=== PATIENT | male | born 1990 | race Caucasian/White ===

== ENCOUNTER 2018-06-20 18:28 | Emergency (ER) | payer MEDICAID ==
--- NOTE | 2018-06-20 18:55 | ED Physician Chart ---
ED Chief Complaint/HPI - Patient Information Date Seen:: 06/20/18 (t) Time Seen:: 18:48 Chief Complaint:: anxiety tachycardia History of Present Illness:: 28 yr old male who was arrested 2-3 days ago for etoh discharged today and was at his storage facility getting his stuff when he felt anxious and pulse was up to 130's after he had just smoked a cgtt . now in 70's no sob cp headache or dizziness he says he feels ok does not need blood or work up wants food and his parents are wanting to him to go back to [place] Allergies:: Allergies Allergy/AdvReac Type Severity Reaction Status Date / Time codeine Allergy Verified 06/20/18 18:38 Vitals:: Vital Signs - 8 hr 06/20/18 18:39 Temp 98.3 F HR 65 RR 15 BP 116/77 O2 Sat % 100 ED Review of Systems - Review of Systems General/Constitutional: No fever, No chills, No weight loss, No weakness, No diaphoresis, No edema, No loss of appetite Skin: No skin lesions, No rash, No bruising Head: No headache, No light-headedness Eyes: No loss of vision, No pain, No diplopia ENT: No earache, No nasal drainage, No sore throat, No tinnitus Neck: No neck pain, No swelling, No thyromegaly, No stiffness, No mass noted Cardio Vascular: No chest pain, No palpitations, No PND, No orthopnea, No edema Pulmonary: No SOB, No cough, No sputum, No wheezing GI: No nausea, No vomiting, No diarrhea, No pain, No melena, No hematochezia, No constipation, No hematemesis G/U: No dysuria, No frequency, No hematuria Musculoskeletal: No bone or joint pain, No back pain, No muscle pain Endocrine: No polyuria, No polydipsia Psychiatric: No prior psych history, No depression, No anxiety, No suicidal ideation Hematopoietic: No bruising, No lymphadenopathy Allergic/Immuno: No urticaria, No angioedema Neurological: No syncope, No focal symptoms, No weakness, No paresthesia, No headache, No seizure, No dizziness, No confusion, No vertigo ED Past Medical History - Past Medical History Past Medical History: Other (etoh) Family Medical History - Family Member Mother History Unknown: Yes ED Septic Shock - . Is Septic Shock (SBP<90, OR Lactate>4 mmol\L) present?: No - <6hrs of presentation: Vital Signs: Vital Signs - 8 hr 06/20/18 18:39 Temp 98.3 F HR 65 RR 15 BP 116/77 O2 Sat % 100 ED Reassessment (Disposition) - Reassessment Reassessment Condition:: Improved - Diagnosis Diagnosis:: anxiety - Aftercare/Follow up Instructions Aftercare/Follow-Up Instructions:: Counseled pt regarding lab results/diagnosis & need follow up - Patient Disposition Discharge/Transfer:: Home Condition at Disposition:: Stable
== END 2018-06-20 19:00 | disposition home or self-care (01) ==
LOC: ER 18:28
DX: F41.9 Anxiety disorder, unspecified (principal); F17.210 Nicotine dependence, cigarettes, uncomplicated; Z88.5 Allergy status to narcotic agent
CPT/HCPCS: Z7502

== ENCOUNTER 2018-06-27 17:58 | Emergency (ER) | payer MEDICAID ==
[2018-06-27] MEDS ORDERED: Sodium Chloride 0.45% 1,000 ML IV ONE (18:04)
--- NOTE | 2018-06-27 18:26 | ED Physician Chart ---
ED Chief Complaint/HPI - Patient Information Date Seen:: 06/27/18 Time Seen:: 18:21 Chief Complaint:: chest pain and anxiety History of Present Illness:: this is a 28 yo homeless male with no history of heart disease and no family history of heart disease. the pain is non-radiating and substernal. the patient denies fever, nausea and vomiting. he admits to smoking and denies hypertension and diabetes. he drinks alcohol also. he denies sob and cough. the patient states that he is homeless. Allergies:: Allergies Allergy/AdvReac Type Severity Reaction Status Date / Time codeine Allergy Verified 06/27/18 18:03 Vitals:: Vital Signs - 8 hr 06/27/18 18:04 Temp 98.1 F HR 101 RR 16 BP 133/84 O2 Sat % 98 Historian:: Patient Review:: Nurse's Note Reviewed, Old Chart Reviewed ED Review of Systems - Review of Systems General/Constitutional: No fever, No chills, No weight loss, No weakness, No diaphoresis, No edema, No loss of appetite Skin: No skin lesions, No rash, No bruising Head: No headache, No light-headedness Eyes: No loss of vision, No pain, No diplopia ENT: No earache, No nasal drainage, No sore throat, No tinnitus Neck: No neck pain, No swelling, No thyromegaly, No stiffness, No mass noted Cardio Vascular: Chest pain, No palpitations, No PND, No orthopnea, No edema Pulmonary: No SOB, No cough, No sputum, No wheezing GI: No nausea, No vomiting, No diarrhea, No pain, No melena, No hematochezia, No constipation, No hematemesis G/U: No dysuria, No frequency, No hematuria Musculoskeletal: No bone or joint pain, No back pain, No muscle pain Endocrine: No polyuria, No polydipsia Psychiatric: No prior psych history, No depression, Anxiety, No suicidal ideation Hematopoietic: No bruising, No lymphadenopathy Allergic/Immuno: No urticaria, No angioedema Neurological: No syncope, No focal symptoms, No weakness, No paresthesia, No headache, No seizure, No dizziness, No confusion, No vertigo ED Past Medical History - Past Medical History Obtainable: Yes Past Medical History: Other (anxiety) Family History: None Social History: Smoker, Alcohol, Illicit Drug Use, Homeless Surgical History: None Psychiatricy History: None Medication: Reviewed Family Medical History - Family Member Mother History Unknown: Yes ED Physical Exam - Physical Examination General/Constitutional: Awake, Well-developed, well-nourished, Alert, No distress, GCS 15, Non-toxic appearing, Ambulatory Head: Atraumatic Eyes: Lids, conjuctiva normal, PERRL, EOMI Skin: Nl inspection, No rash, No skin lesions, No ecchymosis, Well hydrated, No lymphadenopathy ENMT: External ears, nose nl, Nasal exam nl, Lips, teeth, gums nl Neck: Nontender, Full ROM w/o pain, No JVD, No nuchal rigidity, No bruit, No mass, No stridor Respiratory: Nl effort/Exclusion, Clear to Auscultation, No Wheeze/Rhonchi/Rales Cardio Vascular: RRR, No murmur, gallop, rubs, NL S1 S2 GI: No tenderness/rebounding/guarding, No organomegaly, No hernia, Normal BS's, Nondistended, No mass/bruits, No McBurney tenderness : No CVA tenderness Extremities: No tenderness or effusion, Full ROM, normal strength in all extremities, No edema, Normal digits & nails Neuro/Psych: Alert/oriented, DTR's symmetric, Normal sensory exam, Normal motor strength, Judgement/insight normal, Mood normal, Normal gait, No focal deficits Misc: Normal back, No paraspinal tenderness ED Assessment - Assessment General Assessment: chest wall pain anxiety ED Septic Shock - . Is Septic Shock (SBP<90, OR Lactate>4 mmol\L) present?: No - <6hrs of presentation: Vital Signs: Vital Signs - 8 hr 06/27/18 18:04 Temp 98.1 F HR 101 RR 16 BP 133/84 O2 Sat % 98 ED Reassessment (Disposition) - Diagnosis Diagnosis:: anxiety - Aftercare/Follow up Instructions Notes:: dr weems will care for the patient starting at 0700 hrs
[2018-06-27 18:32] LABS: % BASOPHILS 0.2 % (0.0-2.0); % LYMPHOCYTES 26.7 % (20.0-50.0); % MONOCYTES 8.2 % (2.0-10.0); % NEUTROPHILS 63.9 % (40.0-80.0); EOSINOPHILE ABSOLUTE 0.1 Th/cmm (0.1-0.4); HEMATOCRIT 40.8 % (41.0-60); HEMOGLOBIN 13.2 gm/dL (12-16); LYMPHOCYTE ABSOLUTE 1.4 Th/cmm (1.5-3.0); MEAN CELL VOLUME 87.8 fl (80-99); MEAN CORPUSCULAR HEMOGLOBIN 28.5 pg (26.0-30.0); MEAN CORPUSCULAR HGB CONC 32.4 pg (28.0-36.0); MEAN PLATELET VOLUME 9.2 fl; MONOCYTE ABSOLUTE 0.4 Th/cmm (0.3-1.0); NEUTROPHILE ABSOLUTE 3.3 Th/cmm (1.8-8.0); PLATELET COUNT 216 Th/cmm (150-400); RED BLOOD COUNT 4.64 Mil/cmm (4.30-5.70); RED CELL DISTRIBUTION WIDTH 12.9 % (11.5-20.0); WHITE BLOOD COUNT 5.2 Th/cmm (4.8-10.8)
[2018-06-27 18:49] LABS: ALB/GLOB RATIO 1.7 (1.0-1.8); ALBUMIN 4.1 gm/dL (4.2-5.5); ALKALINE PHOSPHATASE 52 U/L (34-104); ANION GAP 13.6 (7.0-16.0); BILIRUBIN,TOTAL 0.4 mg/dL (0.3-1.0); BUN - UREA NITROGEN 13 mg/dL (7-25); CALCIUM SERUM 9.5 mg/dL (8.6-10.3); CARBON DIOXIDE 28.3 mEq/L (21.0-31.0); CHLORIDE 105 mEq/L (98-107); CREATININE - SERUM 1.1 mg/dL (0.7-1.3); GFR AFRICAN-AMERICAN > 60.0 ml/min (>90); GFR NON AFRICAN-AMERICAN > 60.0 ml/min; GLUCOSE 76 mg/dL (70-105); POTASSIUM SERUM 3.9 mEq/L (3.5-5.1); SGOT 18 U/L (13-39); SGPT/ALT 16 U/L (7-52); SODIUM SERUM 143 mEq/L (136-145); TOTAL PROTEIN,SERUM 6.5 gm/dL (6.0-8.3)
[2018-06-27 18:50] LABS: PROTHROMBIN TIME (TEST) 10.4 SECONDS (9.5-11.5)
== END 2018-06-27 20:35 | disposition home or self-care (01) ==
LOC: ER 17:58
DX: F41.9 Anxiety disorder, unspecified (principal); R07.2 Precordial pain; F10.10 Alcohol abuse, uncomplicated; F17.200 Nicotine dependence, unspecified, uncomplicated; Z59.0 Homelessness; Z88.5 Allergy status to narcotic agent
CPT/HCPCS: 36415-UA; 80053-TC; 80320-TC; 84443-TC; 84484-TC; 85025-TC; 85610-TC; 85730-TC; J7030; Z7502

== ENCOUNTER 2018-08-03 07:19 | Emergency (ER) | payer MEDICAID ==
--- NOTE | 2018-08-04 11:36 | ER Physician Documentation ---
DATE OF SERVICE: 08/03/2018 HISTORY OF PRESENT ILLNESS: This patient is 28 years old. He is brought in by pain medicine physician ambulance because apparently he was found on the street. Bystander called 911 and asked the ambulance to take the patient to the ER. The patient apparently was found on the street intoxicated with alcohol, but there was no report of any trauma. The patient initially had some nausea, but that resolved upon ER arrival. The patient had no symptoms upon ER arrival and was alert and oriented x 4. PAST MEDICAL HISTORY: Alcohol intoxication. PAST SURGICAL HISTORY: None. MEDICATIONS: None. SOCIAL HISTORY: The patient is homeless. FAMILY HISTORY: Not known. REVIEW OF SYSTEMS: Otherwise noncontributory. PHYSICAL EXAMINATION: GENERAL: The patient to be in no acute distress, alert and oriented x 3. VITAL SIGNS: Afebrile. Vital signs are stable. HEENT: Head is normocephalic, atraumatic. Pupils equal, round, reactive to light. Fundi benign. Extraocular muscles and TMJs within normal limits. No otorrhea or rhinorrhea, without loose teeth. There is no evidence of trauma. NECK: Supple, no cervical tenderness. No meningeal signs. No bruits. CARDIOVASCULAR: Regular rate and rhythm. LUNGS: Clear with good breath sounds bilaterally. ABDOMEN: Soft, nontender, normal active bowel sounds. No pulsatile masses. EXTREMITIES: No edema, clubbing or cyanosis, NEUROLOGIC: Shows no focal signs. Gait is within normal limits. MEDICAL DECISION MAKING: The patient is ambulatory and has no complaints. The patient refused lab test. The patient refused x-rays and was asymptomatic upon discharge. The patient was able to tolerate fluids well and was given a sandwich the patient ate in the Emergency Room course. He ate a meal and tolerated it well with no problems. Thus, the patient was discharged. Aftercare instructions have been given. The patient is to return to the Emergency Room as needed if the existing signs and symptoms should reoccur and/or get worse and/or any other new signs and symptoms should occur. The patient is to be referred to [facility] and to be referred to detox center as soon as possible. The patient to be referred to pigeon fancier and bulk mail technician as soon as possible. Otherwise, follow up care with primary physician when it was needed. Aftercare instructions were given. Return to Emergency Room as needed if concerned. DIAGNOSES: Nausea, which resolved; gastritis, alcohol abuse, alcoholism. [facility]# [id number]
== END 2018-08-03 09:15 | disposition home or self-care (01) ==
LOC: ER 07:19
DX: K29.70 Gastritis, unspecified, without bleeding (principal); F10.129 Alcohol abuse with intoxication, unspecified; Z88.5 Allergy status to narcotic agent
CPT/HCPCS: Z7502

== ENCOUNTER 2018-10-26 08:34 | Emergency (ER) | payer MEDICAID ==
--- NOTE | 2018-10-26 11:03 | ED Physician Chart ---
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 ER for Alcohol Intoxication and Alcohol Withdrawal and was discharged 4 hours ago with a Rx for Librium in which the pt did not fill that prescription; pt denies trauma, LOC, ALOC, AMS, decreased activity, visual or gait changes, weakness, dizziness, paresthesias, vertigo, SIs, H/As, neck pain, cough, C/P, SOB, Abd. 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 Allergies:: Allergies Allergy/AdvReac Type Severity Reaction Status Date / Time codeine Allergy Verified 10/26/18 08:44 Vitals:: Vital Signs - 8 hr 10/26/18 10/26/18 08:44 09:06 Temp 98.4 F 98.4 F HR 71 71 RR 18 18 BP 138/85 138/85 O2 Sat % 98 Historian:: Patient, EMS Review:: Nurse's Note Reviewed, Old Chart Reviewed, EMS run form Reviewed ED Review of Systems - Review of Systems General/Constitutional: No fever, No chills, No weight loss, No weakness, No diaphoresis, No edema, No loss of appetite Skin: No skin lesions, No rash, No bruising Head: No headache, No light-headedness Eyes: No loss of vision, No pain, No diplopia ENT: No earache, No nasal drainage, No sore throat, No tinnitus Neck: No neck pain, No swelling, No thyromegaly, No stiffness, No mass noted Cardio Vascular: No chest pain, No palpitations, No PND, No orthopnea, No edema Pulmonary: No SOB, No cough, No sputum, No wheezing GI: No nausea, No vomiting, No diarrhea, No pain, No melena, No hematochezia, No constipation, No hematemesis G/U: No dysuria, No frequency, No hematuria, No nacturia Musculoskeletal: No bone or joint pain, No back pain, No muscle pain Endocrine: No polyuria, No polydipsia Psychiatric: No prior psych history, No depression, Anxiety, No suicidal ideation, No homicidal ideation, No auditory hallucination, No visual hallucination Hematopoietic: No bruising, No lymphadenopathy Allergic/Immuno: No urticaria, No angioedema Neurological: No syncope, No focal symptoms, No weakness, No paresthesia, No headache, No seizure, No dizziness, No confusion, No vertigo ED Past Medical History - Past Medical History Obtainable: Yes Past Medical History: No significant medical hx Family History: None Social History: Non Smoker, Alcohol, No Drug Use, Single, Homeless Surgical History: None Psychiatricy History: None Medication: Reviewed Family Medical History - Family Member Mother History Unknown: Yes ED Physical Exam - Physical Examination General/Constitutional: Awake, Well-developed, well-nourished, Alert, No distress, GCS 15, Non-toxic appearing, Ambulatory Head: Atraumatic Eyes: Lids, conjuctiva normal, PERRL, EOMI Skin: Nl inspection, No rash, No skin lesions, No ecchymosis, Well hydrated, No lymphadenopathy ENMT: External ears, nose nl, TM canals nl, Nasal exam nl, Lips, teeth, gums nl , Oropharynx nl, Tonsils nl Neck: Nontender, Full ROM w/o pain, No JVD, No nuchal rigidity, No bruit, No mass, No stridor Other Neck comments:: supple; no meningeal signs; no cervical tenderness; no bruits Respiratory: Nl effort/Exclusion, Clear to Auscultation, No Wheeze/Rhonchi/Rales Cardio Vascular: RRR, No murmur, gallop, rubs, NL S1 S2, Carotid/Femoral/Distal pulses equal bilaterally GI: No tenderness/rebounding/guarding, No organomegaly, No hernia, Normal BS's, Nondistended, No mass/bruits, No McBurney tenderness, Rectum exam nl Other GI comments:: no pulsatile masses; Stool is Negative for Occult Blood : No CVA tenderness Extremities: No tenderness or effusion, Full ROM, normal strength in all extremities, No edema, Normal digits & nails Neuro/Psych: Alert/oriented, DTR's symmetric, Normal sensory exam, Normal motor strength, Judgement/insight normal, Mood normal, Normal gait, No focal deficits Other Neuro/Psych comments:: no focal signs; MSE: WNL; no SIs Misc: Normal back, No paraspinal tenderness ED Labs/Radiology/EKG Results - Lab Results Comments:: deferred by pt - Radiology Results Comments:: dferred by pt ED Septic Shock - . Is Septic Shock (SBP<90, OR Lactate>4 mmol\L) present?: No - <6hrs of presentation: Vital Signs: Vital Signs - 8 hr 10/26/18 10/26/18 08:44 09:06 Temp 98.4 F 98.4 F HR 71 71 RR 18 18 BP 138/85 138/85 O2 Sat % 98 ED Reassessment (Disposition) - Reassessment Reassessment:: pt tolerated po fluids well in ER; pt's anxiety resolved in ER; pt is asymptomatic upon discharge Reassessment Condition:: Improved - Diagnosis Diagnosis:: Alcohol Intoxication; Alcohol Withdrawal; Anxiety Reaction - Aftercare/Follow up Instructions Aftercare/Follow-Up Instructions:: Counseled pt regarding lab results/diagnosis & need follow up, Refer to Discharge Instructions, Counseled pt & family regarding lab results/diagnosis & need follow up Medication Prescribed:: Rx: Librium: take as prescribed; Avoid Alcohol Beverages - Patient Disposition Discharge/Transfer:: Home Condition at Disposition:: Stable, Improved (RTER prn if existing s/s reoccur and/or get worse and/or any other new s/s occur; ACIs given for all above Dx; Refer to [facility]; Refer to Psychiatrist/[employer] [facility]; F/U with PMD in one day or prn; RTER prn if concerned)
== END 2018-10-26 09:30 | disposition home or self-care (01) ==
LOC: ER 08:34
DX: F10.129 Alcohol abuse with intoxication, unspecified (principal); F41.1 Generalized anxiety disorder; Z59.0 Homelessness; Z88.5 Allergy status to narcotic agent
CPT/HCPCS: Z7502

== ENCOUNTER 2018-11-15 06:54 | Emergency (ER) | payer MEDICAID ==
--- NOTE | 2018-11-15 08:15 | ED Physician Chart ---
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 Allergies:: Allergies Allergy/AdvReac Type Severity Reaction Status Date / Time codeine Allergy Verified 11/15/18 07:01 Vitals:: Vital Signs - 8 hr 11/15/18 06:55 Temp 98.1 F HR 80 RR 18 BP 120/56 O2 Sat % 100 Historian:: Patient, EMS Review:: Nurse's Note Reviewed, Old Chart Reviewed, EMS run form Reviewed ED Review of Systems - Review of Systems General/Constitutional: No fever, No chills, No weight loss, No weakness, No diaphoresis, No edema, No loss of appetite Skin: No skin lesions, No rash, No bruising Head: No headache, No light-headedness Eyes: No loss of vision, No pain, No diplopia ENT: No earache, No nasal drainage, No sore throat, No tinnitus Neck: No neck pain, No swelling, No thyromegaly, No stiffness, No mass noted Cardio Vascular: No chest pain, No palpitations, No PND, No orthopnea, No edema Pulmonary: No SOB, No cough, No sputum, No wheezing GI: No nausea, No vomiting, No diarrhea, No pain, No melena, No hematochezia, No constipation, No hematemesis G/U: No dysuria, No frequency, No hematuria, No nacturia Musculoskeletal: No bone or joint pain, No back pain, No muscle pain Endocrine: No polyuria, No polydipsia Psychiatric: No prior psych history, No depression, Anxiety, No suicidal ideation, No homicidal ideation, No auditory hallucination, No visual hallucination Hematopoietic: No bruising, No lymphadenopathy Allergic/Immuno: No urticaria, No angioedema Neurological: No syncope, No focal symptoms, No weakness, No paresthesia, No headache, No seizure, No dizziness, No confusion, No vertigo ED Past Medical History - Past Medical History Obtainable: Yes Past Medical History: No significant medical hx Family History: None Social History: Non Smoker, Alcohol, No Drug Use, Single, Homeless Surgical History: None Psychiatricy History: None Medication: Reviewed Family Medical History - Family Member Mother History Unknown: Yes ED Physical Exam - Physical Examination General/Constitutional: Awake, Well-developed, well-nourished, Alert, No distress, GCS 15, Non-toxic appearing, Ambulatory Head: Atraumatic Eyes: Lids, conjuctiva normal, PERRL, EOMI Other Eyes comments:: PERRLA; Fundi: benign; EOMs: WNL Skin: Nl inspection, No rash, No skin lesions, No ecchymosis, Well hydrated, No lymphadenopathy ENMT: External ears, nose nl, TM canals nl, Nasal exam nl, Lips, teeth, gums nl , Oropharynx nl, Tonsils nl Other ENMT comments:: TMJs: WNL Neck: Nontender, Full ROM w/o pain, No JVD, No nuchal rigidity, No bruit, No mass, No stridor Other Neck comments:: supple; no meningeal signs; no cervical tenderness; no bruits Respiratory: Nl effort/Exclusion, Clear to Auscultation, No Wheeze/Rhonchi/Rales Cardio Vascular: RRR, No murmur, gallop, rubs, NL S1 S2, Carotid/Femoral/Distal pulses equal bilaterally GI: No tenderness/rebounding/guarding, No organomegaly, No hernia, Normal BS's, Nondistended, No mass/bruits, No McBurney tenderness, Rectum exam nl Other GI comments:: no pulsatile masses; Stool: - OB : No CVA tenderness Extremities: No tenderness or effusion, Full ROM, normal strength in all extremities, No edema, Normal digits & nails Neuro/Psych: Alert/oriented, DTR's symmetric, Normal sensory exam, Normal motor strength, Judgement/insight normal, Mood normal, Normal gait, No focal deficits Other Neuro/Psych comments:: no focal signs; MSE: WNL; no SIs; Mood/Affect: Stable Misc: Normal back, No paraspinal tenderness ED Labs/Radiology/EKG Results - Lab Results Comments:: deferred by pt - Radiology Results Comments:: defrred by pt ED Septic Shock - . Is Septic Shock (SBP<90, OR Lactate>4 mmol\L) present?: No - <6hrs of presentation: Vital Signs: Vital Signs - 8 hr 11/15/18 06:55 Temp 98.1 F HR 80 RR 18 BP 120/56 O2 Sat % 100 ED Reassessment (Disposition) - Reassessment Reassessment:: pt tolerated po fluids well in ER; pt is asymptomatic upon discharge Reassessment Condition:: Improved - Diagnosis Diagnosis:: Alcohol Withdrawal; Alcohol Abuse; Anxiety Reaction - Aftercare/Follow up Instructions Aftercare/Follow-Up Instructions:: Counseled pt regarding lab results/diagnosis & need follow up, Refer to Discharge Instructions, Counseled pt & family regarding lab results/diagnosis & need follow up Medication Prescribed:: Rx: Ativan 1.0mg po tid prn anxiety/withdrawal (#10); take medication as prescribed; Avoid ETOH Beverages; Fluids - Patient Disposition Discharge/Transfer:: Home Condition at Disposition:: Stable, Improved (RTER prn if existing s/s reoccur and/or get worse and/or any other new s/s occur; ACIs given for all above Dx; refer to Psychiatrist/Perforator Operator [employer] [facility]; Refer to [facility]; F/U with PMD in one day or prn; RTER prn if concerned)
== END 2018-11-15 08:02 | disposition home or self-care (01) ==
LOC: ER 06:54
DX: F41.1 Generalized anxiety disorder (principal); F10.239 Alcohol dependence with withdrawal, unspecified; Z59.0 Homelessness; Z88.5 Allergy status to narcotic agent
CPT/HCPCS: Z7502

== ENCOUNTER 2018-11-29 08:08 | Emergency (ER) | payer MEDICAID ==
--- NOTE | 2018-11-29 08:59 | ED Physician Chart ---
ED Chief Complaint/HPI - Patient Information Date Seen:: 11/29/18 Time Seen:: 08:40 Chief Complaint:: head doesnt feel right later says withdrawal later request for ativan scrip History of Present Illness:: day admits to etoh homeless Allergies:: Allergies Allergy/AdvReac Type Severity Reaction Status Date / Time codeine Allergy Verified 11/15/18 07:01 Vitals:: Vital Signs - 8 hr 11/29/18 08:30 Temp 97.8 F HR 71 RR 18 BP 120/76 O2 Sat % 97 ED Review of Systems - Review of Systems General/Constitutional: No fever Skin: No skin lesions Head: No headache Eyes: No loss of vision ENT: No earache Neck: No neck pain Cardio Vascular: No chest pain Pulmonary: No SOB GI: No nausea, No vomiting Musculoskeletal: No bone or joint pain Endocrine: No polyuria Psychiatric: Anxiety Hematopoietic: No bruising Allergic/Immuno: No urticaria Neurological: No syncope (up in exam room ambulating without distress) ED Past Medical History - Past Medical History Obtainable: Yes (unreliable historian) Past Medical History: No significant medical hx (chronic etoh no reported trauma ) Social History: Alcohol, Other (benzo) Surgical History: None Psychiatricy History: Other (etoh) Family Medical History - Family Member Mother History Unknown: Yes ED Physical Exam - Physical Examination General/Constitutional: Alert, No distress, Non-toxic appearing, Ambulatory Head: Atraumatic Eyes: Lids, conjuctiva normal Skin: Nl inspection ENMT: External ears, nose nl Neck: Nontender, Full ROM w/o pain, No JVD, No nuchal rigidity, No stridor Respiratory: Nl effort/Exclusion Cardio Vascular: RRR GI: No tenderness/rebounding/guarding Extremities: No tenderness or effusion, Full ROM Neuro/Psych: Normal motor strength ED Labs/Radiology/EKG Results - Lab Results Results: lactic acidosis lipase slight increase slight etoh iv placed immediate wants out ad ama ED Assessment - Assessment General Assessment: etohism neg intracerbral bleed ED Septic Shock - . Is Septic Shock (SBP<90, OR Lactate>4 mmol\L) present?: No - <6hrs of presentation: Vital Signs: Vital Signs - 8 hr 11/29/18 08:30 Temp 97.8 F HR 71 RR 18 BP 120/76 O2 Sat % 97 ED Reassessment (Disposition) - Reassessment Reassessment Condition:: Unchanged - Aftercare/Follow up Instructions Aftercare/Follow-Up Instructions:: Counseled pt regarding lab results/diagnosis & need follow up (worsening teturn) - Patient Disposition Discharge/Transfer:: Against Medical Advice
[2018-11-29 09:24] LABS: ALB/GLOB RATIO 1.8 (1.0-1.8); ALBUMIN 4.2 gm/dL (4.2-5.5); ALKALINE PHOSPHATASE 33 U/L (34-104); ANION GAP 11.3 (7.0-16.0); BILIRUBIN,TOTAL 0.4 mg/dL (0.3-1.0); BUN - UREA NITROGEN 13 mg/dL (7-25); CALCIUM SERUM 9.1 mg/dL (8.6-10.3); CHLORIDE 106 mEq/L (98-107); CREATININE - SERUM 1.1 mg/dL (0.7-1.3); GFR AFRICAN-AMERICAN > 60.0 ml/min (>90); GFR NON AFRICAN-AMERICAN > 60.0 ml/min; GLUCOSE 86 mg/dL (70-105); LIPASE 103 U/L (11-82); POTASSIUM SERUM 4.3 mEq/L (3.5-5.1); SGOT 32 U/L (13-39); SGPT/ALT 26 U/L (7-52); SODIUM SERUM 141 mEq/L (136-145); TOTAL PROTEIN,SERUM 6.5 gm/dL (6.0-8.3)
[2018-11-29 09:25] LABS: HEMATOCRIT 39.3 % (41.0-60); MEAN CORPUSCULAR HEMOGLOBIN 29.8 pg (26.0-30.0); MEAN CORPUSCULAR HGB CONC 33.2 pg (28.0-36.0); PLATELET COUNT 170 Th/cmm (150-400); RED BLOOD COUNT 4.37 Mil/cmm (4.30-5.70); RED CELL DISTRIBUTION WIDTH 13.3 % (11.5-20.0); WHITE BLOOD COUNT 3.3 Th/cmm (4.8-10.8)
[2018-11-29 09:26] LABS: BILIRUBIN,DIRECT 0.09 mg/dL (0.0-0.2)
[2018-11-29 09:58] LABS: BAND NEUTROPHILE 1 % (0-10); BASOPHIL 0 % (0-3); EOSINOPHIL 0 % (0-5); LYMPHOCYTE 34 % (20-50); MONOCYTE 11 % (2-10); NEUTROPHILS 54 % (40-80)
[2018-11-29 10:02] LABS: URINE SOURCE RANDOM
[2018-11-29 10:08] LABS: URINE BILIRUBIN NEGATIVE (NEGATIVE); URINE BLOOD NEGATIVE (NEGATIVE); URINE GLUCOSE (UA) NEGATIVE (NEGATIVE); URINE KETONE NEGATIVE (NEGATIVE); URINE LEUKOCYTE ESTERASE NEGATIVE (NEGATIVE); URINE NITRATE NEGATIVE (NEGATIVE); URINE PH 5.5 (4.6 - 8.0); URINE PROTEIN NEGATIVE (NEGATIVE); URINE UROBILINOGEN 0.2 E.U./dL (0.2 - 1.0)
[2018-11-29 10:13] LABS: URINE CLARITY CLEAR (CLEAR); URINE COLOR YELLOW; URINE MICROSCOPIC INDICATED? NO
[2018-11-29 10:18] LABS: AMPHETAMINE URINE NEGATIVE (NEGATIVE); BARBITURATES URINE NEGATIVE (NEGATIVE); BENZODIAZEPINES QUAL URINE POSITIVE (NEGATIVE); CANNABINOID THC NEGATIVE (NEGATIVE); COCAINE METABOLITE QUAL URINE NEGATIVE (NEGATIVE); METHADONE URINE NEGATIVE (NEGATIVE); METHAMPHETAMINES QUAL URINE NEGATIVE (NEGATIVE); OPIATES (MORPHINE) QUAL. URINE NEGATIVE (NEGATIVE); PHENCYCLIDINE (PCP) URINE NEGATIVE (NEGATIVE); TRICYCLICS (TCA) QUAL. URINE NEGATIVE (NEGATIVE)
[2018-11-29] MEDS ORDERED: Sodium Chloride 0.9% 500 ML IV ONE (11:19)
--- NOTE | 2018-11-29 12:59 | Diagnostic Imaging Report ---
Portable chest x-ray History: Cough Allowing for portable technique the heart size is normal. No focal pulmonary parenchymal processes. No hilar or mediastinal abnormalities. Impression: No acute abnormalities.
== END 2018-11-29 11:45 | disposition left against medical advice (07) ==
LOC: ER 08:08
DX: F10.239 Alcohol dependence with withdrawal, unspecified (principal); Z59.0 Homelessness; Z88.5 Allergy status to narcotic agent; Y90.3 Blood alcohol level of 60-79 mg/100 ml
CPT/HCPCS: 99284; 71046; 36415; 83605; 80307; 85007; 85025; 81003; 80320; 83690; 80076; 80048; 87040; J7040

== ENCOUNTER 2018-12-20 20:07 | Emergency (ER) | payer MEDICAID ==
--- NOTE | 2018-12-20 20:26 | ED Physician Chart ---
ED Chief Complaint/HPI - Patient Information Date Seen:: 12/20/18 Time Seen:: 20:21 Chief Complaint:: Dizziness History of Present Illness:: 28 yo homeless male had dizziness 30 minutes ago. Pt asked a bystander to call 911. Pt told EMS that "I am feeling dizzy and my heart is weak." Pt was then brought to [place] [facility]. Pt was joking, laughing and talking to himself. 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 Pt wanted a CXR to clear him. After search, pt had already had a CXR 2 views done at our ER on 11/29 which showed no acute abnormalities, no focal pulmonary parenchymal processes. Allergies:: Allergies Allergy/AdvReac Type Severity Reaction Status Date / Time codeine Allergy Verified 11/15/18 07:01 Vitals:: Vital Signs - 8 hr 12/20/18 20:16 Temp 99.0 F HR 93 RR 16 BP 120/72 O2 Sat % 96 ED Review of Systems - Review of Systems General/Constitutional: No fever, No chills Skin: No skin lesions Head: No headache Eyes: No pain ENT: No earache Neck: No neck pain Cardio Vascular: No chest pain Pulmonary: No SOB GI: No nausea, No vomiting Musculoskeletal: No bone or joint pain Psychiatric: No depression, No anxiety, No suicidal ideation Neurological: No focal symptoms ED Past Medical History - Past Medical History Past Medical History: No significant medical hx Social History: Non Smoker, Alcohol, Illicit Drug Use Surgical History: other (forehead surgery) Psychiatricy History: Bipolar Family Medical History - Family Member Mother History Unknown: Yes ED Physical Exam - Physical Examination General/Constitutional: Awake, Alert Head: Atraumatic Eyes: PERRL, EOMI Skin: No skin lesions ENMT: Nasal exam nl Neck: No nuchal rigidity Respiratory: No Wheeze/Rhonchi/Rales Cardio Vascular: RRR, No murmur, gallop, rubs, NL S1 S2 GI: No tenderness/rebounding/guarding Extremities: normal strength in all extremities Neuro/Psych: No focal deficits ED Assessment - Assessment General Assessment: Positive TB skin test Bipolar disorder Assessment/Comments:: Gave a copy of CXR report on 11/29/18 to patient. ED Septic Shock - . Is Septic Shock (SBP<90, OR Lactate>4 mmol\\L) present?: No - <6hrs of presentation: Vital Signs: Vital Signs - 8 hr 12/20/18 20:16 Temp 99.0 F HR 93 RR 16 BP 120/72 O2 Sat % 96 ED Reassessment (Disposition) - Reassessment Reassessment Condition:: Improved - Patient Disposition Discharge/Transfer:: Home
== END 2018-12-20 21:30 | disposition home or self-care (01) ==
LOC: ER 20:07
DX: R76.11 Nonspecific reaction to tuberculin skin test without active tuberculosis (principal); F31.9 Bipolar disorder, unspecified; R42 Dizziness and giddiness; Z88.5 Allergy status to narcotic agent
CPT/HCPCS: Z7502

== ENCOUNTER 2019-01-15 09:56 | Emergency (ER) | payer MEDICAID ==
--- NOTE | 2019-01-15 10:26 | ED Physician Chart ---
ED Chief Complaint/HPI - Patient Information Date Seen:: 01/15/19 Time Seen:: 10:20 Chief Complaint:: laceration rt hand History of Present Illness:: 28 yr old male with laceration rt thenar area after punching a glass door yest 12 hrs ago has some bleeding which perplexing him no deformities or foreign bodies Allergies:: Allergies Allergy/AdvReac Type Severity Reaction Status Date / Time codeine Allergy Verified 01/15/19 10:02 Vitals:: Vital Signs - 8 hr 01/15/19 10:03 Temp 98.3 F HR 86 RR 17 BP 118/65 O2 Sat % 98 ED Review of Systems - Review of Systems General/Constitutional: No fever, No chills, No weight loss, No weakness, No diaphoresis, No edema, No loss of appetite Skin: Other (small cau 1cm rt hand) Head: No headache, No light-headedness Eyes: No loss of vision, No pain, No diplopia ENT: No earache, No nasal drainage, No sore throat, No tinnitus Neck: No neck pain, No swelling, No thyromegaly, No stiffness, No mass noted Cardio Vascular: No chest pain, No palpitations, No PND, No orthopnea, No edema Pulmonary: No SOB, No cough, No sputum, No wheezing GI: No nausea, No vomiting, No diarrhea, No pain, No melena, No hematochezia, No constipation, No hematemesis G/U: No dysuria, No frequency, No hematuria Musculoskeletal: No bone or joint pain, No back pain, No muscle pain Endocrine: No polyuria, No polydipsia Psychiatric: No prior psych history, No depression, No anxiety, No suicidal ideation Hematopoietic: No bruising, No lymphadenopathy Allergic/Immuno: No urticaria, No angioedema Neurological: No syncope, No focal symptoms, No weakness, No paresthesia, No headache, No seizure, No dizziness, No confusion, No vertigo ED Past Medical History - Past Medical History Past Medical History: No significant medical hx Family Medical History - Family Member Mother History Unknown: Yes ED Physical Exam - Physical Examination General/Constitutional: Awake, Well-developed, well-nourished, Alert, No distress, GCS 15, Non-toxic appearing, Ambulatory Head: Atraumatic Eyes: Lids, conjuctiva normal, PERRL, EOMI Skin: Nl inspection, No rash, No skin lesions, No ecchymosis, Well hydrated, No lymphadenopathy Other Skin comments:: small 1cm superficial wound rt thenar area ENMT: External ears, nose nl, Nasal exam nl, Lips, teeth, gums nl Neck: Nontender, Full ROM w/o pain, No JVD, No nuchal rigidity, No bruit, No mass, No stridor Respiratory: Nl effort/Exclusion, Clear to Auscultation, No Wheeze/Rhonchi/Rales Cardio Vascular: RRR, No murmur, gallop, rubs, NL S1 S2 GI: No tenderness/rebounding/guarding, No organomegaly, No hernia, Normal BS's, Nondistended, No mass/bruits, No McBurney tenderness : No CVA tenderness Extremities: No tenderness or effusion, Full ROM, normal strength in all extremities, No edema, Normal digits & nails Neuro/Psych: Alert/oriented, DTR's symmetric, Normal sensory exam, Normal motor strength, Judgement/insight normal, Mood normal, Normal gait, No focal deficits Misc: Normal back, No paraspinal tenderness ED Assessment - Assessment General Assessment: rt hand laceration ED Septic Shock - . Is Septic Shock (SBP<90, OR Lactate>4 mmol\L) present?: No - <6hrs of presentation: Vital Signs: Vital Signs - 8 hr 01/15/19 10:03 Temp 98.3 F HR 86 RR 17 BP 118/65 O2 Sat % 98 ED Reassessment (Disposition) - Reassessment Reassessment:: rt hand laceration - Diagnosis Diagnosis:: as above - Aftercare/Follow up Instructions Aftercare/Follow-Up Instructions:: Counseled pt regarding lab results/diagnosis & need follow up Notes:: wound cleaned with betadyne steri strips placed wound dressed tetanus shot given - Patient Disposition Discharge/Transfer:: Home Condition at Disposition:: Stable
== END 2019-01-15 10:58 | disposition home or self-care (01) ==
LOC: ER 09:56
DX: S61.411A Laceration without foreign body of right hand, initial encounter (principal); Z88.5 Allergy status to narcotic agent; W25.XXXA Contact with sharp glass, initial encounter; Y93.89 Activity, other specified; Y92.89 Other specified places as the place of occurrence of the external cause; Y99.8 Other external cause status
CPT/HCPCS: Z7502; Z7610

== ENCOUNTER 2019-01-22 09:32 | Emergency (ER) | payer MEDICAID | END 2019-01-22 10:00 | disposition left against medical advice (07) | LOC: ER 09:32 | DX: R07.89 Other chest pain (principal); Z53.21 Procedure and treatment not carried out due to patient leaving prior to being seen by health care provider ==